=== PATIENT | female | born 1970 | race African-American/Black ===

== ENCOUNTER 2023-12-22 11:39 | Observation (INO) ==
[2023-12-22 12:22] LABS: Hematocrit (blood only) 38.7 % (37.0-47.0); Hemoglobin 12.7 g/dl (12.0-16.0); Mean Corpuscular Hemoglobin 29.1 pg (25.0-34.0); Mean Corpuscular Hgb Conc 32.8 g/dL (32.0-36.0); Mean Corpuscular Volume 88.8 fL (80.0-100.0); Mean Platelet Volume 9.6 fL (9.4-12.4); Platelet Count 309 K/uL (130-400); RDW Coefficient of Variation 14.9 % (11.5-14.5); RDW Standard Deviation 48.9 fL (36.4-46.3); Red Blood Count 4.36 M/uL (4.20-5.40); White Blood Count 5.66 K/ul (4.8-10.8)
[2023-12-22] MEDS: SODIUM CHLORIDE 0.9% 1,000 ML IV ONE (12:22)
--- NOTE | 2023-12-22 12:24 | Emergency Department Note ---
Impression & Plan Somnolence, Stroke-like symptoms, Cocaine abuse ED Provider Note NAME: JASE GARRETT AGE: 53 SEX: F : 1970 ARRIVES VIA: Ambulance INFORMANT: Patient ED PROVIDER(S): Vincent Ibarra MD CHIEF COMPLAINT: Stroke symptoms, referred. PLAN: Disposition: Admit MEDICAL DECISION MAKING: The patient is a 53-year-old woman with a past medical history of cerebrovascular disease/TIA, polysubstance abuse, ERIK, hypertension, neuropathy presents to the emergency department via EMS referred by her PCP after being seen in their office today where is noted that she was altered from her baseline with concern for left-sided weakness in setting of history of TIA. The patient herself reports that she did not realize her left sided weakness though she had reported to her PCP per documentation that she noticed symptoms when she woke up this morning. Per records, the patient has a history of left-sided weakness where she was admitted to [facility] and had stroke evaluation including MRI was negative and was suspected that her symptoms were likely related to vasospasm secondary to cocaine abuse. Patient acknowledges this history but reports she has not used cocaine for at least several days. She denies any other drug ingestions. Has not recent fevers, chills, cough, congestion. On evaluation the patient is mildly somnolent but alert to voice, follows commands. She has no focal extremity weakness she exhibits an intermittent myoclonic jerk. Reflex within normal limits. There is no clonus. EKG without overt acute ischemia. CXR negative for acute cardiopulmonary process per my personal preliminary review/interpretation. WBC, H/H and platelets within normal limits. Chemistry without metabolic acidosis. Electrolytes and FTs unremarkable. High-sensitivity troponin 2.8, within normal limits. Lipase not elevated. TSH is elevated at 25 with free T4 mildly low at 0.50. hCG negative. CT of the head and CT of the head and neck were performed and negative for ICH, ischemia or severe narrowing or occlusion of large vessels. Upon reevaluation the patient continues to have no focal logic deficits though still with mild somnolence though easily awakes to voice. Given she is yet to return to her baseline she does agree with plan for admission for further management. Unclear etiology of the patient's symptoms though polysubstance use is suspected to be contributing either use recently as well as withdrawal such as cocaine washout syndrome. Given history of cerebrovascular disease, TIA or vasospasm as previously suspected also possible but considered to be less likely. Case was discussed with Dr. Cortez, [facility] [place], who will evaluate the patient for admission. Further management per admitting team. Triage Nursing notes reviewed and agree them. Prior/external medical records reviewed Vital Signs: reviewed Differential diagnosis: Infection, dehydration, metabolic abnormality, hypo/hyperglycemia, electrolyte disturbance, anemia, hypoxia, cardiac sources, intracerebral event, toxicologic, neurologic, as well as other pathologies. ER treatment provided: See below. Diagnostics interpreted by me: ECG: Sinus bradycardia, 50 bpm, no ectopy, no overt ST elevation or depression, QTc 428, QRS 88 Cardiac Monitoring: An order for continuous cardiac monitoring was placed and demonstrated sinus bradycardia, 50 bpm, no ectopy. Laboratory studies: See below Imaging studies: See below Consultation(s): Case was discussed with Dr. Cortez, [facility] hospitalist, who will evaluate the patient for admission. HPI: The patient is a 53-year-old woman with a past medical history of cerebrovascular disease/TIA, polysubstance abuse, ERIK, hypertension, neuropathy presents to the emergency department via EMS referred by her PCP after being seen in their office today where is noted that she was altered from her baseline with concern for left-sided weakness in setting of history of TIA. The patient herself reports that she did not realize her left sided weakness though she had reported to her PCP per documentation that she noticed symptoms when she woke up this morning. Per records, the patient has a history of left-sided weakness where she was admitted to [facility] and had stroke evaluation including MRI was negative and was suspected that her symptoms were likely related to vasospasm secondary to cocaine abuse. Patient acknowledges this history but reports she has not used cocaine for at least several days. She denies any other drug ingestions. Has not recent fevers, chills, cough, congestion. ROS: See above HPI for pertinent positives & negatives. A total of 10 systems reviewed and were otherwise negative. VITALS:See Below PHYSICAL EXAMINATION: GENERAL: Mildly somnolent but alert to voice, in no distress HENT: Normocephalic, atraumatic. Oropharynx with dry mucous membranes and otherwise unremarkable. EYES: Normal conjunctiva. Sclera non-icteric. EOMI. No nystamgus. PEARRL. NECK: Supple. No nuchal rigidity. FROM. No JVD. RESPIRATORY: Clear to auscultation. CARDIAC: Bradycardic rate, normal rhythm. Extremities warm and well perfused. Pulses equal. ABDOMEN: Soft, non-distended. No tenderness to palpation. No rebound or guarding. No masses. MUSCULOSKELETAL: Chest examination reveals no tenderness. The back is symmetrical on inspection without obvious abnormality. There is no CVA tenderness to palpation. No joint edema. LOWER EXTREMITIES: Calves are equal size bilaterally and non-tender. No edema. No discoloration. NEURO: No focal sensory or motor deficits noted. Generalized weakness with 4+/5 strength and SILT x 4 extremities. Cerebellar function intact including [id number]. SKIN: No rash or jaundice noted. Vincent Ibarra MD Past Med/Surg History Medical History Cocaine abuse Polysubstance abuse CVA (cerebral vascular accident) Chronic back pain Neuropathy Degenerative disc disease Scoliosis History of kidney stones IBS (irritable bowel syndrome) History of thyroid cancer 2016--sx and radiation Anemia Anxiety Depression Transient ischemic attack (TIA) 2017--no deficits--follows with Dr. Carreon at [place] Sleep apnea cpap Unintentional weight loss Surgical History H/O thyroidectomy History of colonoscopy with polypectomy History of ankle surgery left History of open reduction and internal fixation (ORIF) procedure Boxer's Fracture repair History of carpal tunnel surgery of right wrist x2 History of section x2 History of cholecystectomy History of tooth extraction partial History of placement of ear tubes S/P panniculectomy H/O laparoscopy S/P hysterectomy LYNN BSO H/O hernia repair Status post appendectomy Family History Mother Heart disease Brother Diabetes Heart disease Sister Diabetes Grandmother (Maternal) Breast cancer Grandmother (Paternal) Coronary heart disease Daughter Slow to wake up after anesthesia Father Afib Other Hypertension Social History Smoking Status: Current every day smoker Tobacco Type: Cigarettes Cigarettes Per Day: 5; Second Hand Exposure: Yes (nephew smokes); Do You Dip or Chew Tobacco: No; Hx Alcohol Use: No Hx Substance 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) Preferred Language: Tunisian Communication Ability: Effective Visual Impairment: Limited Hearing Ability: Normal Music Video Director Required: No Beliefs That Will Affect Care: None marital status: Single Current Living Situation: Other 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 How many Children do You have: 2 Feels Safe at Home: Yes Childhood Exposure to Second-Hand Smoke: Yes Diet: regular caffeine: No during the past year weight has: decreased > 10 lbs Dental Care, Regularly: No Physical Activity Frequency: 3-4 Times per Week Seatbelt Use: always Sunscreen Use: No Assistive Devices: CPAP and Glasses Allergies Allergies Allergy/AdvReac Type Severity Reaction Status Date / Time ketorolac [From Toradol] Allergy Severe Anaphylaxis Verified 12/22/23 10:47 morphine Allergy Severe Anaphylaxis Verified 12/22/23 10:47 naproxen Allergy Severe Anaphylaxis Verified 12/22/23 10:47 Penicillins Allergy Severe Anaphylaxis Verified 12/22/23 10:47 tramadol Allergy Severe Anaphylaxis Verified 12/22/23 10:47 Home Meds Home Medications Medication Instructions Recorded Confirmed multivitamin 1 tab PO QAM 08/18/20 12/22/23 buprenorphine 8 mg-naloxone 2 mg 2 film buccal DAILY 12/22/23 12/22/23 sublingual film (Suboxone) Previous Rx's Medication Instructions Recorded Cane #1 ea 06/22/22 naloxone 4 mg/actuation nasal 4 mg intranasal Q2M PRN 02/01/23 spray (Narcan) Respiratory Distress #2 ea albuterol sulfate 90 mcg/actuation 2 puff inhalation Q6H PRN 04/27/23 aerosol inhaler (Ventolin HFA) Shortness Of Breath #8.5 grams atorvastatin 10 mg tablet 10 mg PO DAILY #30 tabs 04/27/23 gabapentin 800 mg tablet 800 mg PO QID #360 tabs 04/27/23 levothyroxine 150 mcg tablet 150 mcg PO QAM #90 tabs 04/27/23 pantoprazole 40 mg tablet,delayed 40 mg PO QAM gerd #90 tabs 04/27/23 release paroxetine HCl 20 mg tablet 20 mg PO QAM #90 tabs 04/27/23 hydrocortisone 2.5 % topical cream 1 applic MD BID hemorrhoids #30 08/15/23 with perineal applicator grams (Anusol-HC) aspirin 81 mg tablet,delayed 81 mg PO QAM #90 tabs 08/31/23 release (Adult Aspirin Regimen) fluticasone furoate 200 1 inh inhalation QAM #180 ea 08/31/23 mcg-vilanterol 25 mcg/dose inhalation powder (Breo Ellipta) sennosides 8.6 mg-docusate sodium 1 - 4 tab-cap (1 - 4 x 8.6-50 mg) 08/31/23 50 mg tablet (Colace 2-In-1) PO DAILY constipation #360 tabs hydrochlorothiazide 25 mg tablet 25 mg PO DAILY #30 tabs 09/05/23 docusate sodium 100 mg capsule See Rx Instructions .Route 09/09/23 .COMPLEX #60 caps tizanidine 4 mg capsule 4 mg PO QID PRN ud #120 caps 11/23/23 Results & Data (ED) Vital Signs Vital Signs - 24 hr 12/22/23 11:58 12/22/23 11:58 12/22/23 11:58 Temperature 37 C Temperature Source Oral Oral Pulse Rate 54 L Pulse Rate from SpO2 Sensor Respiratory Rate 15 Respiratory Effort / Characteristics Non-Labored Spontaneous Respiratory Depth Normal Blood Pressure 126/78 Blood Pressure Mean 94 Blood Pressure Position Lying Pulse Oximetry 99 Oxygen Delivery Method Room Air Room Air Sepsis Recent Fever Within 48 Hours No Sepsis New/Unexplained Change in Mental Status N/A Sepsis Action Taken by Nursing No Action Required 12/22/23 12:02 12/22/23 12:10 12/22/23 12:10 Temperature Temperature Source Pulse Rate 53 L 52 L Pulse Rate from SpO2 Sensor 53 L 52 L Respiratory Rate 12 Respiratory Effort / Characteristics Respiratory Depth Blood Pressure Blood Pressure Mean Blood Pressure Position Pulse Oximetry 97 99 98 Oxygen Delivery Method Room Air Sepsis Recent Fever Within 48 Hours Sepsis New/Unexplained Change in Mental Status Sepsis Action Taken by Nursing 12/22/23 12:20 12/22/23 12:30 12/22/23 12:31 Temperature Temperature Source Pulse Rate 54 L 49 L 53 L Pulse Rate from SpO2 Sensor 57 L 49 L Respiratory Rate 18 11 L Respiratory Effort / Characteristics Respiratory Depth Blood Pressure Blood Pressure Mean Blood Pressure Position Pulse Oximetry 98 98 Oxygen Delivery Method Sepsis Recent Fever Within 48 Hours Sepsis New/Unexplained Change in Mental Status Sepsis Action Taken by Nursing 12/22/23 12:40 12/22/23 12:50 12/22/23 13:00 Temperature Temperature Source Pulse Rate 55 L 57 L 59 L Pulse Rate from SpO2 Sensor 55 L 57 L 59 L Respiratory Rate 20 17 20 Respiratory Effort / Characteristics Respiratory Depth Blood Pressure Blood Pressure Mean Blood Pressure Position Pulse Oximetry 100 100 98 Oxygen Delivery Method Sepsis Recent Fever Within 48 Hours Sepsis New/Unexplained Change in Mental Status Sepsis Action Taken by Nursing 12/22/23 13:10 12/22/23 13:20 12/22/23 13:44 Temperature Temperature Source Pulse Rate 53 L 55 L 48 L Pulse Rate from SpO2 Sensor 53 L 55 L 47 L Respiratory Rate 14 Respiratory Effort / Characteristics Respiratory Depth Blood Pressure Blood Pressure Mean Blood Pressure Position Pulse Oximetry 99 98 98 Oxygen Delivery Method Sepsis Recent Fever Within 48 Hours Sepsis New/Unexplained Change in Mental Status Sepsis Action Taken by Nursing 12/22/23 13:50 12/22/23 14:00 12/22/23 14:10 Temperature Temperature Source Pulse Rate 49 L 48 L 48 L Pulse Rate from SpO2 Sensor 49 L 48 L 48 L Respiratory Rate 12 12 18 Respiratory Effort / Characteristics Respiratory Depth Blood Pressure Blood Pressure Mean Blood Pressure Position Pulse Oximetry 98 98 98 Oxygen Delivery Method Sepsis Recent Fever Within 48 Hours Sepsis New/Unexplained Change in Mental Status Sepsis Action Taken by Nursing 12/22/23 14:20 12/22/23 14:30 12/22/23 14:40 Temperature Temperature Source Pulse Rate 49 L 47 L 48 L Pulse Rate from SpO2 Sensor 48 L 48 L 48 L Respiratory Rate 15 18 Respiratory Effort / Characteristics Respiratory Depth Blood Pressure Blood Pressure Mean Blood Pressure Position Pulse Oximetry 98 99 98 Oxygen Delivery Method Sepsis Recent Fever Within 48 Hours Sepsis New/Unexplained Change in Mental Status Sepsis Action Taken by Nursing 12/22/23 14:50 12/22/23 15:00 12/22/23 15:10 Temperature Temperature Source Pulse Rate 48 L 48 L 49 L Pulse Rate from SpO2 Sensor 48 L 48 L 49 L Respiratory Rate 12 12 Respiratory Effort / Characteristics Respiratory Depth Blood Pressure Blood Pressure Mean Blood Pressure Position Pulse Oximetry 98 100 99 Oxygen Delivery Method Sepsis Recent Fever Within 48 Hours Sepsis New/Unexplained Change in Mental Status Sepsis Action Taken by Nursing 12/22/23 15:30 12/22/23 15:40 12/22/23 16:38 Temperature Temperature Source Pulse Rate 47 L 52 L 55 L Pulse Rate from SpO2 Sensor 47 L 52 L Respiratory Rate 16 Respiratory Effort / Characteristics Respiratory Depth Blood Pressure Blood Pressure Mean Blood Pressure Position Pulse Oximetry 100 99 Oxygen Delivery Method Sepsis Recent Fever Within 48 Hours Sepsis New/Unexplained Change in Mental Status Sepsis Action Taken by Nursing Laboratory Data Attestation: I reviewed the patient's lab results. 12/22/23 11:55 12/22/23 11:55 Lab Results 12/22/23 12/22/23 12/22/23 Range/Units 11:55 12:17 12:20 WBC 5.66 (4.8-10.8) K/ul RBC 4.36 (4.20-5.40) M/uL Hgb 12.7 (12.0-16.0) g/dl Hct 38.7 (37.0-47.0) % MCV 88.8 (80.0-100.0) fL MCH 29.1 (25.0-34.0) pg MCHC 32.8 (32.0-36.0) g/dL RDW Std Deviation 48.9 H (36.4-46.3) fL RDW Coeff of Reilly 14.9 H (11.5-14.5) % Plt Count 309 (130-400) K/uL MPV 9.6 (9.4-12.4) fL Immature Gran % (Auto) 0.2 % Neut % (Auto) 41.4 % Lymph % (Auto) 50.9 % [place] % (Auto) 4.9 % Eos % (Auto) 1.2 % Baso % (Auto) 1.4 % Neut # (Auto) 2.34 (1.40-6.50) K/uL Lymph # (Auto) 2.88 (1.20-3.40) K/uL [place] # (Auto) 0.28 (0.11-0.59) K/uL Eos # (Auto) 0.07 (0.00-0.50) K/uL Baso # (Auto) 0.08 (0.00-0.20) K/uL Immature Gran # (Auto) 0.01 (0.01-0.20) K/uL PT 11.4 (9.0-12.0) Seconds INR 1.0 (0.9-1.1) Sodium 137 (136-145) mmol/L Potassium 3.7 (3.5-5.1) mmol/L Chloride 105 (98-107) mmol/L Carbon Dioxide 27 (21-32) mmol/L Anion Gap 5 (3-11) BUN 14 (6-23) mg/dl Creatinine 1.16 (0.6-1.2) mg/dl Est Cr Clr Drug Dosing 53.7 ml/min Est GFR ( Amer) 63.1 ml/min Est GFR (Non-Af Amer) 54.5 ml/min BUN/Creatinine Ratio 12.1 (10-20) Glucose 108 H (70-99(Fasting)) mg/dl POC Glucose 95 (70-99) mg/dl Calcium 8.4 L (8.6-10.3) mg/dl Phosphorus 3.9 (2.5-4.9) mg/dl Magnesium 2.0 (1.7-2.4) mg/dl Total Bilirubin 0.4 (0.2-1.0) mg/dl AST 18 (13-39) U/L ALT 11 (7-52) U/L Alkaline Phosphatase 67 (34-104) U/L Troponin I High Sens 2.8 (0-14) pg/ml Total Protein 6.9 (6.0-8.3) gm/dl Albumin 4.2 (3.4-5.0) gm/dl Globulin 2.7 (2.5-4.0) gm/dl Albumin/Globulin Ratio 1.6 (0.9-2) Lipase 44 (11-82) U/L TSH 25.199 H (0.300-4.500) uIu/ml Free T4 0.50 L (0.61-1.60) ng/dl HCG, Qual Negative (Negative) Urine Color Urine Appearance (Clear) Urine pH (4.5-7.5) Ur Specific [place] (1.000-1.030) Urine Protein (Negative) Urine Glucose (UA) (Negative) Urine Ketones (Negative) Urine Blood (Negative) Urine Nitrite (Negative) Urine Bilirubin (Negative) Urine Urobilinogen (Negative) Ur Leukocyte Esterase (Negative) Urine Opiates Screen (Neg) Ur Methadone, Qual (Neg) Urine Barbiturates (Neg) Ur Phencyclidine (PCP) (Neg) U Amphetamin/Meth Scrn (Neg) MDMA (Ecstasy) Screen (Neg) U Benzodiazepines Scrn (Neg) Ur Cocaine Metabolite (Neg) U Marijuana (THC) Screen (Neg) Ethyl Alcohol mg/dL < 10.0 (<10.0) mg/dl 12/22/23 Range/Units 15:25 WBC (4.8-10.8) K/ul RBC (4.20-5.40) M/uL Hgb (12.0-16.0) g/dl Hct (37.0-47.0) % MCV (80.0-100.0) fL MCH (25.0-34.0) pg MCHC (32.0-36.0) g/dL RDW Std Deviation (36.4-46.3) fL RDW Coeff of Reilly (11.5-14.5) % Plt Count (130-400) K/uL MPV (9.4-12.4) fL Immature Gran % (Auto) % Neut % (Auto) % Lymph % (Auto) % [place] % (Auto) % Eos % (Auto) % Baso % (Auto) % Neut # (Auto) (1.40-6.50) K/uL Lymph # (Auto) (1.20-3.40) K/uL [place] # (Auto) (0.11-0.59) K/uL Eos # (Auto) (0.00-0.50) K/uL Baso # (Auto) (0.00-0.20) K/uL Immature Gran # (Auto) (0.01-0.20) K/uL PT (9.0-12.0) Seconds INR (0.9-1.1) Sodium (136-145) mmol/L Potassium (3.5-5.1) mmol/L Chloride (98-107) mmol/L Carbon Dioxide (21-32) mmol/L Anion Gap (3-11) BUN (6-23) mg/dl Creatinine (0.6-1.2) mg/dl Est Cr Clr Drug Dosing ml/min Est GFR ( Amer) ml/min Est GFR (Non-Af Amer) ml/min BUN/Creatinine Ratio (10-20) Glucose (70-99(Fasting)) mg/dl POC Glucose (70-99) mg/dl Calcium (8.6-10.3) mg/dl Phosphorus (2.5-4.9) mg/dl Magnesium (1.7-2.4) mg/dl Total Bilirubin (0.2-1.0) mg/dl AST (13-39) U/L ALT (7-52) U/L Alkaline Phosphatase (34-104) U/L Troponin I High Sens (0-14) pg/ml Total Protein (6.0-8.3) gm/dl Albumin (3.4-5.0) gm/dl Globulin (2.5-4.0) gm/dl Albumin/Globulin Ratio (0.9-2) Lipase (11-82) U/L TSH (0.300-4.500) uIu/ml Free T4 (0.61-1.60) ng/dl HCG, Qual (Negative) Urine Color Yellow Urine Appearance Clear (Clear) Urine pH 6.0 (4.5-7.5) Ur Specific [place] 1.029 (1.000-1.030) Urine Protein Negative (Negative) Urine Glucose (UA) Negative (Negative) Urine Ketones Negative (Negative) Urine Blood Negative (Negative) Urine Nitrite Negative (Negative) Urine Bilirubin Negative (Negative) Urine Urobilinogen Negative (Negative) Ur Leukocyte Esterase Negative (Negative) Urine Opiates Screen Neg (Neg) Ur Methadone, Qual Neg (Neg) Urine Barbiturates Neg (Neg) Ur Phencyclidine (PCP) Neg (Neg) U Amphetamin/Meth Scrn Neg (Neg) MDMA (Ecstasy) Screen Neg (Neg) U Benzodiazepines Scrn Neg (Neg) Ur Cocaine Metabolite Pos H (Neg) U Marijuana (THC) Screen Neg (Neg) Ethyl Alcohol mg/dL (<10.0) mg/dl Administered Medications Discontinued Medications Sodium Chloride (Nss) 1,000 mls @ 999 mls/hr IV .Q1H1M ONE Stop: 12/22/23 13:02 Last Infusion: 12/22/23 13:24 Dose: Infused Documented By: Admin: 12/22/23 12:22 Dose: 999 mls/hr Documented By: AGUSTÍN Ioversol (Optiray 350 500ml) 113 ml IV ONCE ONE Stop: 12/22/23 13:41 Last Admin: 12/22/23 13:41 Dose: 113 ml Documented By: ISABELA Imaging Data Radiologist's Impression: Chest X-Ray 12/22/23 12:01 SINGLE VIEW CHEST CLINICAL HISTORY: Strokelike symptoms. FINDINGS: 2 AP, portable, upright chest radiographs are obtained. No prior studies are available for comparison at the time of dictation. Partially degraded The cardiomediastinal silhouette is unremarkable. There is mild elevation of the right hemidiaphragm with right basilar atelectasis. The lungs and pleural spaces are otherwise clear. No pneumothorax is seen. The bony thorax is grossly intact. IMPRESSION: No active disease in the chest. ACT 112: Negative or not required by law. Electronically signed by: Nick Caceres M.D. 12/22/2023 12:[address] 12/22/23 12:[address] OF THE BRAIN; CT ANGIOGRAM OF THE BRAIN; CT ANGIOGRAM OF THE NECK CLINICAL HISTORY: Difficulty walking. Strokelike symptoms. COMPARISON STUDY: No priors. TECHNIQUE: Unenhanced axial CT scan of the brain is performed. Subsequently, following the IV administration of 113 of Optiray 320, CT angiogram of the head and neck was performed from the aortic arch to the vertex. Images are reviewed in the axial, sagittal, and coronal planes. 3-D MIPS images are created and assessed. IV contrast was administered without complication. All measurements were calculated based on NASCET criteria. A dose lowering technique was utilized adhering to the principles of ALARA. CT DOSE: 1013.98 mGy.cm FINDINGS: Brain parenchyma: The brain parenchyma is normal in appearance. There is no hemorrhage, mass effect, or evidence of acute territorial ischemia by CT criteria. There is no evidence of enhancing mass lesion on the angiogram phase images. The ventricles, sulci, and cisterns are normal in configuration. Hewitt- white matter differentiation is preserved. No extra-axial fluid collection is seen. Thoracic aorta: There is moderate atherosclerotic calcification of the thoracic aorta. Visualized portions of the thoracic aorta are normal in caliber. The aortic arch demonstrates standard 3-vessel anatomy. Right carotid arterial system: The right common carotid artery is widely patent, as on the right internal and external carotid arteries. Left carotid arterial system: The left common carotid artery is widely patent, as are the left internal and external carotid arteries. Vertebral arteries: The vertebral arteries are widely patent bilaterally noting right-sided dominance. Subclavian arteries: Widely patent bilaterally. Intracranial vasculature: The internal carotid arteries are patent at the skull base, as are the anterior and middle cerebral arteries bilaterally. The vertebrobasilar system and posterior cerebral arteries are widely patent. The right vertebral artery is dominant. There is no aneurysm, high-grade stenosis, or focal vessel cut off seen throughout the intracranial circulation. Jugular veins: Patent bilaterally. Dural sinuses: Patent. Lung apices: Partially visualized upper lobe lung parenchyma appears clear. Soft tissues: The visualized pharyngeal soft tissues are normal in appearance noting angiographic phase technique. The oropharyngeal airway appears widely patent. The salivary and thyroid glands are normal in appearance. No cervical lymphadenopathy is seen. Skeletal structures: The skeletal structures are osteopenic. The calvarium appears intact. The cervical spine is within normal limits. There are minimal infiltrates. The compression injuries of T2 and T3. Orbits: The bony orbits are intact. Orbital contents are normal as visualized. Sinuses and mastoids: There is trace mucosal thickening right maxillary antrum. The remaining paranasal sinuses are clear. The mastoid air cells are well pneumatized. IMPRESSION: 1. There is no hemorrhage, mass effect, or evidence of acute territorial ischemia by CT criteria. 2. Unremarkable CT angiogram of the brain. 3. Unremarkable CT angiogram of the neck. ACT 112: Negative or not required by law. Electronically signed by: Nick Caceres M.D. 12/22/2023 1:58 PM Head CTA 12/22/23 12:[address] OF THE BRAIN; CT ANGIOGRAM OF THE BRAIN; CT ANGIOGRAM OF THE NECK CLINICAL HISTORY: Difficulty walking. Strokelike symptoms. COMPARISON STUDY: No priors. TECHNIQUE: Unenhanced axial CT scan of the brain is performed. Subsequently, following the IV administration of 113 of Optiray 320, CT angiogram of the head and neck was performed from the aortic arch to the vertex. Images are reviewed in the axial, sagittal, and coronal planes. 3-D MIPS images are created and assessed. IV contrast was administered without complication. All measurements were calculated based on NASCET criteria. A dose lowering technique was utilized adhering to the principles of ALARA. CT DOSE: 1013.98 mGy.cm FINDINGS: Brain parenchyma: The brain parenchyma is normal in appearance. There is no hemorrhage, mass effect, or evidence of acute territorial ischemia by CT criteria. There is no evidence of enhancing mass lesion on the angiogram phase images. The ventricles, sulci, and cisterns are normal in configuration. Hewitt- white matter differentiation is preserved. No extra-axial fluid collection is seen. Thoracic aorta: There is moderate atherosclerotic calcification of the thoracic aorta. Visualized portions of the thoracic aorta are normal in caliber. The aortic arch demonstrates standard 3-vessel anatomy. Right carotid arterial system: The right common carotid artery is widely patent, as on the right internal and external carotid arteries. Left carotid arterial system: The left common carotid artery is widely patent, as are the left internal and external carotid arteries. Vertebral arteries: The vertebral arteries are widely patent bilaterally noting right-sided dominance. Subclavian arteries: Widely patent bilaterally. Intracranial vasculature: The internal carotid arteries are patent at the skull base, as are the anterior and middle cerebral arteries bilaterally. The vertebrobasilar system and posterior cerebral arteries are widely patent. The right vertebral artery is dominant. There is no aneurysm, high-grade stenosis, or focal vessel cut off seen throughout the intracranial circulation. Jugular veins: Patent bilaterally. Dural sinuses: Patent. Lung apices: Partially visualized upper lobe lung parenchyma appears clear. Soft tissues: The visualized pharyngeal soft tissues are normal in appearance noting angiographic phase technique. The oropharyngeal airway appears widely patent. The salivary and thyroid glands are normal in appearance. No cervical lymphadenopathy is seen. Skeletal structures: The skeletal structures are osteopenic. The calvarium appears intact. The cervical spine is within normal limits. There are minimal infiltrates. The compression injuries of T2 and T3. Orbits: The bony orbits are intact. Orbital contents are normal as visualized. Sinuses and mastoids: There is trace mucosal thickening right maxillary antrum. The remaining paranasal sinuses are clear. The mastoid air cells are well pneumatized. IMPRESSION: 1. There is no hemorrhage, mass effect, or evidence of acute territorial ischemia by CT criteria. 2. Unremarkable CT angiogram of the brain. 3. Unremarkable CT angiogram of the neck. ACT 112: Negative or not required by law. Electronically signed by: Nick Caceres M.D. 12/22/2023 1:58 PM Neck CTA 12/22/23 12:[address] OF THE BRAIN; CT ANGIOGRAM OF THE BRAIN; CT ANGIOGRAM OF THE NECK CLINICAL HISTORY: Difficulty walking. Strokelike symptoms. COMPARISON STUDY: No priors. TECHNIQUE: Unenhanced axial CT scan of the brain is performed. Subsequently, following the IV administration of 113 of Optiray 320, CT angiogram of the head and neck was performed from the aortic arch to the vertex. Images are reviewed in the axial, sagittal, and coronal planes. 3-D MIPS images are created and assessed. IV contrast was administered without complication. All measurements were calculated based on NASCET criteria. A dose lowering technique was utilized adhering to the principles of ALARA. CT DOSE: 1013.98 mGy.cm FINDINGS: Brain parenchyma: The brain parenchyma is normal in appearance. There is no hemorrhage, mass effect, or evidence of acute territorial ischemia by CT criteria. There is no evidence of enhancing mass lesion on the angiogram phase images. The ventricles, sulci, and cisterns are normal in configuration. Hewitt- white matter differentiation is preserved. No extra-axial fluid collection is seen. Thoracic aorta: There is moderate atherosclerotic calcification of the thoracic aorta. Visualized portions of the thoracic aorta are normal in caliber. The aortic arch demonstrates standard 3-vessel anatomy. Right carotid arterial system: The right common carotid artery is widely patent, as on the right internal and external carotid arteries. Left carotid arterial system: The left common carotid artery is widely patent, as are the left internal and external carotid arteries. Vertebral arteries: The vertebral arteries are widely patent bilaterally noting right-sided dominance. Subclavian arteries: Widely patent bilaterally. Intracranial vasculature: The internal carotid arteries are patent at the skull base, as are the anterior and middle cerebral arteries bilaterally. The vertebrobasilar system and posterior cerebral arteries are widely patent. The right vertebral artery is dominant. There is no aneurysm, high-grade stenosis, or focal vessel cut off seen throughout the intracranial circulation. Jugular veins: Patent bilaterally. Dural sinuses: Patent. Lung apices: Partially visualized upper lobe lung parenchyma appears clear. Soft tissues: The visualized pharyngeal soft tissues are normal in appearance noting angiographic phase technique. The oropharyngeal airway appears widely patent. The salivary and thyroid glands are normal in appearance. No cervical lymphadenopathy is seen. Skeletal structures: The skeletal structures are osteopenic. The calvarium appears intact. The cervical spine is within normal limits. There are minimal infiltrates. The compression injuries of T2 and T3. Orbits: The bony orbits are intact. Orbital contents are normal as visualized. Sinuses and mastoids: There is trace mucosal thickening right maxillary antrum. The remaining paranasal sinuses are clear. The mastoid air cells are well pneumatized. IMPRESSION: 1. There is no hemorrhage, mass effect, or evidence of acute territorial ischemia by CT criteria. 2. Unremarkable CT angiogram of the brain. 3. Unremarkable CT angiogram of the neck. ACT 112: Negative or not required by law. Electronically signed by: Nick Caceres M.D. 12/22/2023 1:58 PM Discharge Plan Visit Data Chief Complaint: Stroke/CVA Symptoms ED Provider: Vincent Ibarra Discharge Problem: Somnolence, Stroke-like symptoms, Cocaine abuse Forms Stand Alone Forms: [facility] Candid io Prescriptions Prescriptions: No Action Narcan 4 mg/actuation spray,non-aerosol 4 mg intranasal Q2M PRN (Reason: Respiratory Distress) Qty: 2 1RF Rx Instructions: spray 1 dose into ONE nostril; alternate nostrils w each dose until help arrives hydrocortisone [Anusol-HC] 2.5 % cream with perineal applicator 1 applic MD BID Qty: 30 1RF sennosides-docusate sodium [Colace 2-In-1] 8.6-50 mg tablet 1 - 4 tab-cap PO DAILY Qty: 360 1RF Breo Ellipta 200-25 mcg/dose blister with device 1 inh inhalation QAM Qty: 180 1RF aspirin [Adult Aspirin Regimen] 81 mg tablet,delayed release (DR/EC) 81 mg PO QAM Qty: 90 1RF docusate sodium 100 mg capsule See Rx Instructions .ROUTE .COMPLEX Qty: 60 2RF Dose Instruction: take 1 capsule twice daily Rx Instructions: take 1 capsule twice daily tizanidine 4 mg capsule 4 mg PO QID PRN (Reason: ud) Qty: 120 0RF hydrochlorothiazide 25 mg tablet 25 mg PO DAILY Qty: 30 11RF multivitamin Tablet 1 tab PO QAM albuterol sulfate [Ventolin HFA] 90 mcg/actuation HFA aerosol inhaler 2 puff inhalation Q6H PRN (Reason: Shortness Of Breath) Qty: 8.5 11RF atorvastatin 10 mg tablet 10 mg PO DAILY Qty: 30 11RF gabapentin 800 mg tablet 800 mg PO QID Qty: 360 1RF levothyroxine 150 mcg tablet 150 mcg PO QAM Qty: 90 2RF pantoprazole 40 mg tablet,delayed release (DR/EC) 40 mg PO QAM Qty: 90 3RF paroxetine HCl 20 mg tablet 20 mg PO QAM Qty: 90 3RF (DME) Cane See Rx Instructions .Route .MEDSUPPLY Qty: 1 0RF Rx Instructions: As directed buprenorphine-naloxone [Suboxone] 8-2 mg film 2 film buccal DAILY Rx Instructions: original directions: 1 film daily Referrals Referrals: Guy Mayfield, [Primary Care Provider] -
[2023-12-22 12:35] LABS: Prothrombin Time 11.4 Seconds (9.0-12.0)
[2023-12-22 12:37] LABS: Basophils # (auto) 0.08 K/uL (0.00-0.20); Basophils % (auto) 1.4 %; Eosinophils # (auto) 0.07 K/uL (0.00-0.50); Eosinophils % (auto) 1.2 %; Immature Granulocytes # (auto) 0.01 K/uL (0.01-0.20); Immature Granulocytes % (auto) 0.2 %; Lymphocytes # (auto) 2.88 K/uL (1.20-3.40); Lymphocytes % (auto) 50.9 %; Monocytes # (auto) 0.28 K/uL (0.11-0.59); Monocytes % (auto) 4.9 %; Neutrophils # (auto) 2.34 K/uL (1.40-6.50); Neutrophils % (auto) 41.4 %
[2023-12-22 12:40] LABS: Pregnancy Test, Serum Negative (Negative)
[2023-12-22 12:52] LABS: Albumin Level 4.2 gm/dl (3.4-5.0); Bilirubin,Total 0.4 mg/dl (0.2-1.0); Calcium 8.4 mg/dl (8.6-10.3); Potassium 3.7 mmol/L (3.5-5.1)
[2023-12-22 12:57] LABS: Troponin I High Sensitivity 2.8 pg/ml (0-14)
[2023-12-22 12:58] LABS: Albumin Globulin Ratio 1.6 (0.9-2); BUN Creatinine Ratio 12.1 (10-20); Creatinine Clr Calc Pharmacy 53.7 ml/min; Est GFR (African American) 63.1 ml/min; Est GFR (Non-African American) 54.5 ml/min; Globulin 2.7 gm/dl (2.5-4.0); Phosphorus 3.9 mg/dl (2.5-4.9); Total Protein 6.9 gm/dl (6.0-8.3)
[2023-12-22 13:06] LABS: Thyroid Stimulating Hormone 25.199 uIu/ml (0.300-4.500)
[2023-12-22] MEDS: OPTIRAY 350 500ml IV ONE (13:41)
[2023-12-22 13:45] LABS: T4 Free Thyroxine 0.5 ng/dl (0.61-1.60)
--- NOTE | 2023-12-22 13:59 | CT Scan Report ---
UNENHANCED CT OF THE BRAIN; CT ANGIOGRAM OF THE BRAIN; CT ANGIOGRAM OF THE NECK CLINICAL HISTORY: Difficulty walking. Strokelike symptoms. COMPARISON STUDY: No priors. TECHNIQUE: Unenhanced axial CT scan of the brain is performed. Subsequently, following the IV adminis tration of 113 of Optiray 320, CT angiogram of the head and neck was performed from the aortic arch t o the vertex. Images are reviewed in the axial, sagittal, and coronal planes. 3-D MIPS images are cre ated and assessed. IV contrast was administered without complication. All measurements were calculate d based on NASCET criteria. A dose lowering technique was utilized adhering to the principles of ALA RA. CT DOSE: 1013.98 mGy.cm FINDINGS: Brain parenchyma: The brain parenchyma is normal in appearance. There is no hemorrhage, mass effect, or evidence of acute territorial ischemia by CT criteria. There is no evidence of enhancing mass lesi on on the angiogram phase images. The ventricles, sulci, and cisterns are normal in configuration. Gr ay-white matter differentiation is preserved. No extra-axial fluid collection is seen. Thoracic aorta: There is moderate atherosclerotic calcification of the thoracic aorta. Visualized por tions of the thoracic aorta are normal in caliber. The aortic arch demonstrates standard 3-vessel arleen kristi. Right carotid arterial system: The right common carotid artery is widely patent, as on the right inte rnal and external carotid arteries. Left carotid arterial system: The left common carotid artery is widely patent, as are the left international account manager al and external carotid arteries. Vertebral arteries: The vertebral arteries are widely patent bilaterally noting right-sided dominance . Subclavian arteries: Widely patent bilaterally. Intracranial vasculature: The internal carotid arteries are patent at the skull base, as are the ante rior and middle cerebral arteries bilaterally. The vertebrobasilar system and posterior cerebral areli cabrera are widely patent. The right vertebral artery is dominant. There is no aneurysm, high-grade sten osis, or focal vessel cut off seen throughout the intracranial circulation. Jugular veins: Patent bilaterally. Dural sinuses: Patent. Lung apices: Partially visualized upper lobe lung parenchyma appears clear. Soft tissues: The visualized pharyngeal soft tissues are normal in appearance noting angiographic pha se technique. The oropharyngeal airway appears widely patent. The salivary and thyroid glands are nor mal in appearance. No cervical lymphadenopathy is seen. Skeletal structures: The skeletal structures are osteopenic. The calvarium appears intact. The cervic al spine is within normal limits. There are minimal infiltrates. The compression injuries of T2 and T 3. Orbits: The bony orbits are intact. Orbital contents are normal as visualized. Sinuses and mastoids: There is trace mucosal thickening right maxillary antrum. The remaining paranas al sinuses are clear. The mastoid air cells are well pneumatized. IMPRESSION: 1. There is no hemorrhage, mass effect, or evidence of acute territorial ischemia by CT criteria. 2. Unremarkable CT angiogram of the brain. 3. Unremarkable CT angiogram of the neck. ACT 112: Negative or not required by law. Electronically signed by: Nick Caceres M.D. 12/22/2023 1:58 PM
--- NOTE | 2023-12-22 14:02 | Electrocardiogram Report ---
Test Reason : Blood Pressure : / mmHG Vent. Rate : 050 BPM Atrial Rate : 050 BPM P-R Int : 160 ms QRS Dur : 088 ms QT Int : 470 ms P-R-T Axes : 072 076 -14 degrees QTc Int : 428 ms Sinus bradycardia T wave abnormality, consider anterolateral ischemia Abnormal ECG No previous ECGs available Confirmed by Mikey Fontenot ([id number]) on 12/22/2023 2:02:13 PM Referred By: REFERRED SELF Confirmed By:Mikey Fontenot
[2023-12-22 15:41] LABS: Appearance Urine Clear (Clear); Bilirubin Urine Negative (Negative); Blood Urine Negative (Negative); Color Urine Yellow; Glucose Urine UA Negative (Negative); Ketones Urine Negative (Negative); Leukocyte Esterase Urine Negative (Negative); Nitrite Urine Negative (Negative); Protein Urine Negative (Negative); Specific Gravity Urine 1.029 (1.000-1.030); Urobilinogen Urine Negative (Negative)
--- NOTE | 2023-12-22 16:33 | History & Physical Report ---
Date of Service December 22, 2023 Assessment & Plan (1) Stroke-like symptoms: Plan: LUE Weakness, dysarthria, somnolence Patient with reported dysarthria, and focal left upper extremity deficits as outpatient the seem nearly resolved at time of inpatient assessment although somewhat limited by engagement and somnolence CT/CT angio of the head and neck without acute findings MRI pending No dysarthria on admission DDx includes substance-induced encephalopathy/sedation, possible extra doses of Suboxone versus gabapentin versus cocaine withdrawal following cocaine use 3 days ago (2) Somnolence: (3) Polysubstance abuse: Plan: History of polysubstance abuse Endorses cocaine use 3 days ago urine tox is consistent/positive for this. ?Withdrawal She does take buprenorphine and opiates screen is negative, does not think she took any additional doses of your buprenorphine yesterday but is not sure what day it is and requires frequent reorientation. She does not have respiratory compromise at time of assessment is slightly bradycardic with appropriate chronotropic response. Narcan is on-call for severe narcosis, will continue to monitor at this time. She does not have metabolic acidosis on admission Alcohol is negative Anion gap is normal (4) Hypothyroidism (acquired): Plan: Hypothyroidism TSH is elevated with low free T4, Synthroid adjusted from 150 mcg to 175 mcg. Recheck TSH in 6 weeks as outpatient. (5) GERD without esophagitis: Plan: GERD Continue Protonix Plan Chronic stable issues Hypertension: Normotensive on admission. Dyazide temporarily held pending stroke evaluation for permissive hypertension; if normal can continue Anxiety: Paroxetine continued History of neuropathy, denies numbness/tingling on admission. Tizanidine held. Gabapentin level pending, hold if elevated patient denies extra doses of this DVT prophylaxis: Lovenox Disposition: PCU CODE STATUS: Full code History of Present Illness Primary Care Provider: Guy Mayfield DO Patient follows with Dr. Mayfield as outpatient and is well-known to that office. When seen today patient was reportedly normal the previous night but on PCP evaluation had diminished strength and fine motor activity of the left upper extremity with new balance deficits with slurred speech and left pronator drift suspicious for acute stroke pathology. She was referred to the ER for stroke evaluation. 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 CT of the head and CT angios were normal. History of similar symptoms with suspected vasospasm mediated etiology from cocaine use, patient denies any cocaine use in the preceding 72 hours. Troponin is normal. Patient seen at the bedside. Somnolent and falls asleep easily. History is somewhat limited by somnolence. She reorients easily but frequently falls asleep and needs reorientation and is unclear what day it is. She is oriented to month and year, but does repeatedly ask where she is and what it is. Laurel is seen in the ER. Extremely somnolent. No chest pain or chest pressure. No dyspnea. +dry nonproductive cough for a few days. Denies fever, chills, sweats but has been cold lately. Denies diarrhrea/constipation Takes suboxone 2x 8mg total daily split as morning and night.Takes suboxone for pain. Denies narcotic use in the last 7 years. Denies any other coingestions other than cocaine use 3 days ago Reports that she did not take her Suboxone today last took this last night, and denies taking any extra doses. Urine tox is negative for opiates, positive for cocaine Denies headache, photosensitivity, photosensitivity At time bedside assessment she denies weakness. Denies paresthesias at the bedside Medical History: Reviewed Medications: Reviewed Surgical History: Reviewed Family history: Reviewed Allergies: Reviewed Social History: Cigarettes 0.5ppd, >10years. Endorses coaine use 3 days ago. Uses cocaine less than monthly. Code Status: Full code Allergies Allergy/AdvReac Type Severity Reaction Status Date / Time ketorolac [From Toradol] Allergy Severe Anaphylaxis Verified 12/22/23 10:47 morphine Allergy Severe Anaphylaxis Verified 12/22/23 10:47 naproxen Allergy Severe Anaphylaxis Verified 12/22/23 10:47 Penicillins Allergy Severe Anaphylaxis Verified 12/22/23 10:47 tramadol Allergy Severe Anaphylaxis Verified 12/22/23 10:47 Home Medications Medication Instructions Recorded Confirmed Type multivitamin 1 tab PO QAM 08/18/20 12/22/23 History Cane #1 ea 06/22/22 12/22/23 Rx naloxone 4 mg/actuation nasal 4 mg intranasal Q2M PRN 02/01/23 12/22/23 Rx spray (Narcan) Respiratory Distress #2 ea albuterol sulfate 90 mcg/actuation 2 puff inhalation Q6H PRN 04/27/23 12/22/23 Rx aerosol inhaler (Ventolin HFA) Shortness Of Breath #8.5 grams atorvastatin 10 mg tablet 10 mg PO DAILY #30 tabs 04/27/23 12/22/23 Rx gabapentin 800 mg tablet 800 mg PO QID #360 tabs 04/27/23 12/22/23 Rx levothyroxine 150 mcg tablet 150 mcg PO QAM #90 tabs 04/27/23 12/22/23 Rx pantoprazole 40 mg tablet,delayed 40 mg PO QAM gerd #90 tabs 04/27/23 12/22/23 Rx release paroxetine HCl 20 mg tablet 20 mg PO QAM #90 tabs 04/27/23 12/22/23 Rx hydrocortisone 2.5 % topical cream 1 applic MI BID hemorrhoids #30 08/15/23 12/22/23 Rx with perineal applicator grams (Anusol-HC) aspirin 81 mg tablet,delayed 81 mg PO QAM #90 tabs 08/31/23 12/22/23 Rx release (Adult Aspirin Regimen) fluticasone furoate 200 1 inh inhalation QAM #180 ea 08/31/23 12/22/23 Rx mcg-vilanterol 25 mcg/dose inhalation powder (Breo Ellipta) sennosides 8.6 mg-docusate sodium 1 - 4 tab-cap (1 - 4 x 8.6-50 mg) 08/31/23 12/22/23 Rx 50 mg tablet (Colace 2-In-1) PO DAILY constipation #360 tabs hydrochlorothiazide 25 mg tablet 25 mg PO DAILY #30 tabs 09/05/23 12/22/23 Rx docusate sodium 100 mg capsule See Rx Instructions .Route 09/09/23 12/22/23 Rx .COMPLEX #60 caps tizanidine 4 mg capsule 4 mg PO QID PRN ud #120 caps 11/23/23 12/22/23 Rx buprenorphine 8 mg-naloxone 2 mg 2 film buccal DAILY 12/22/23 12/22/23 History sublingual film (Suboxone) Past Med/Surg History Medical History (Updated 12/22/23 @ 16:35 by Vincent Ibarra MD) Cocaine abuse Polysubstance abuse CVA (cerebral vascular accident) Chronic back pain Neuropathy Degenerative disc disease Scoliosis History of kidney stones IBS (irritable bowel syndrome) History of thyroid cancer 2017--sx and radiation Anemia Anxiety Depression Transient ischemic attack (TIA) 2017--no deficits--follows with Dr. Carreon at [facility] Sleep apnea cpap Unintentional weight loss Surgical History H/O thyroidectomy History of colonoscopy with polypectomy History of ankle surgery left History of open reduction and internal fixation (ORIF) procedure Boxer's Fracture repair History of carpal tunnel surgery of right wrist x2 History of section x2 History of cholecystectomy History of tooth extraction partial History of placement of ear tubes S/P panniculectomy H/O laparoscopy S/P hysterectomy LYNN BSO H/O hernia repair Status post appendectomy Family History Mother Heart disease Brother Diabetes Heart disease Sister Diabetes Grandmother (Maternal) Breast cancer Grandmother (Paternal) Coronary heart disease Daughter Slow to wake up after anesthesia Father Afib Other Hypertension Social History Smoking Status: Current every day smoker Tobacco Type: Cigarettes Cigarettes Per Day: 5; Second Hand Exposure: Yes (nephew smokes); Do You Dip or Chew Tobacco: No; Hx Alcohol Use: No Hx Substance 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) Preferred Language: Georgian Communication Ability: Effective Visual Impairment: Limited Hearing Ability: Normal Apprenticeship Training Representative Required: No Beliefs That Will Affect Care: None marital status: Single Current Living Situation: Other 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 Falls back asleep easily HEENT: Atraumatic, normocephalic. Pupils equal and reactive to light. Vision and hearing grossly intact Pulm: CTAB A&P. -wheezes, -rales, -rhonchi. Symmetrical chest rise. No increased work of breathing. No respiratory distress. Cardiac: bardycardic, regular, -mrg. Radial pulses intact and symmetrical. Abdominal: Nontender, nondistended, soft. BS present. Extremities: 5/5 call center dispatcher strength, elbow flexion, hip flexion, ankle dorsiflexion/plantarflexion grossly at the bedside although limited effort due to somnolence and engagement. Endorses intact sensation in hands and feet bilaterally. No obvious dysmetria. Results & Data Results & Data Vital Signs (Past 12 Hours) Vital Signs Temp Pulse Resp BP Pulse Ox O2 Del Method 12/22/23 15:40 52 L 16 99 12/22/23 15:30 47 L 100 12/22/23 15:10 49 L 12 99 12/22/23 15:00 48 L 100 12/22/23 14:50 48 L 12 98 12/22/23 14:40 48 L 18 98 12/22/23 14:30 47 L 99 12/22/23 14:20 49 L 15 98 12/22/23 14:10 48 L 18 98 12/22/23 14:00 48 L 12 98 12/22/23 13:50 49 L 12 98 12/22/23 13:44 48 L 14 98 12/22/23 13:20 55 L 98 12/22/23 13:10 53 L 99 12/22/23 13:00 59 L 20 98 12/22/23 12:50 57 L 17 100 12/22/23 12:40 55 L 20 100 12/22/23 12:31 53 L 12/22/23 12:30 49 L 11 L 98 12/22/23 12:20 54 L 18 98 12/22/23 12:10 52 L 12 98 12/22/23 12:10 99 Room Air 12/22/23 12:02 53 L 97 12/22/23 11:58 Room Air 12/22/23 11:58 37 C 54 L 15 126/78 99 Room Air PG Care Time/CCT Total # of Minutes Spent Total Time Spent with Patient: Total time spent is greater than 50% in coordination of care (as documented) at patient's floor/unit and/or counseling patient: Coding Level of Care Code 47139 INT INP/OBS CARE 3/75MIN Diagnoses Stroke-like symptoms R29.90 Somnolence R40.0 Polysubstance abuse F19.10 Hypothyroidism (acquired) E03.9 GERD without esophagitis K21.9
[2023-12-22 16:37] LABS: Amphetamines+Metham, Urine Neg (Neg); Barbiturates, Urine Neg (Neg); Benzodiazepine, Urine Neg (Neg); Cocaine, Urine Pos (Neg); MDMA (Ecstacy), Urine Neg (Neg); Marijuana, Urine Neg (Neg); Methadone, Urine Neg (Neg); Opiate, Urine Neg (Neg); Phencyclidine, Urine Neg (Neg)
[2023-12-22] MEDS ORDERED: ALBUTEROL HFA 8 GM INHALER INH PRN (16:44)
[2023-12-22] MEDS ORDERED: NALOXONE HCL 0.4 MG/1 ML VIAL/CARP IV PRN (16:49)
[2023-12-22 18:25] LABS: Adenovirus PCR Not Detected (NotDetected); Bordetella parapertussis PCR Not Detected (NotDetected); Bordetella pertussis PCR Not Detected (NotDetected); Chlamydia pneumoniae PCR Not Detected (NotDetected); Coronavirus 229E PCR Not Detected (NotDetected); Coronavirus CoV-2 (COVID19)PCR Not Detected (NotDetected); Coronavirus HKU1 PCR Not Detected (NotDetected); Coronavirus NL63 PCR Not Detected (NotDetected); Coronavirus OC43PCR Not Detected (NotDetected); Human Metapneumovirus PCR Not Detected (NotDetected); Influenza A PCR Not Detected (NotDetected); Influenza B PCR Not Detected (NotDetected); Mycoplasma pneumoniae PCR Not Detected (NotDetected); Parainfluenza Virus 1 PCR Not Detected (NotDetected); Parainfluenza Virus 2 PCR Not Detected (NotDetected); Parainfluenza Virus 3 PCR Not Detected (NotDetected); Parainfluenza Virus 4 PCR Not Detected (NotDetected); Respiratory Syncytial VirusPCR Not Detected (NotDetected); Rhinovirus/Enterovirus PCR Not Detected (NotDetected)
[2023-12-22] MEDS ORDERED: PHARMACIST DISCHARGE MED REC CONSULT PRN (20:07)
--- NOTE | 2023-12-22 20:44 | XRay Report ---
BONY ORBITS 3 VIEWS CLINICAL HISTORY: MRI clearance. FINDINGS: 3 views of the bony orbits are obtained. No prior studies are available for comparison at t he time of dictation. There is no radiodense/metallic foreign body seen in the region of the bony orb its. Punctate radiodense/metallic foreign bodies project over the mandible on the lateral projection. The bony orbits are intact as imaged. The visualized paranasal sinuses and the mastoid air cells meaghan ear clear. The imaged calvarium appears intact. IMPRESSION: 1. There is no radiodense/metallic foreign body seen in the region of the bony orbits. 2. Punctate radiodense/metallic foreign bodies project over the mandible. ACT 112: Negative or not required by law. Electronically signed by: Nick Caceres M.D. 12/22/2023 8:42 PM
--- NOTE | 2023-12-22 20:45 | XRay Report ---
KUB CLINICAL HISTORY: MRI clearance. FINDINGS: An AP supine abdominal radiograph is compared to study dated 09/23/2020. There is a nonobst ructed abdominal bowel gas pattern. Moderate fecal retention is seen throughout the colon. Cholecyste ctomy clips are noted in the right upper quadrant. Excreted IV contrast is seen in the renal collecti ng systems and bladder. No radiodense/metallic foreign body identified. The bony structures appear in tact. IMPRESSION: 1. Moderate constipation. 2. No radiodense/metallic foreign body is identified. Electronically signed by: Nick Caceres M.D. 12/22/2023 8:44 PM
[2023-12-22] MEDS: GABAPENTIN 800 MG TAB PO SCH (21:30)
[2023-12-22] MEDS: ENOXAPARIN INJ 40 MG/0.4 ML SYR SQ SCH (21:30)
[2023-12-23] MEDS: ACETAMINOPHEN 325 MG TAB PO PRN (03:57)
[2023-12-23] MEDS: LEVOTHYROXINE SODIUM 175 MCG TABLET PO SCH (05:41)
[2023-12-23 06:19] LABS: Hematocrit (blood only) 36.3 % (37.0-47.0); Hemoglobin 12.3 g/dl (12.0-16.0); Mean Corpuscular Hemoglobin 29.5 pg (25.0-34.0); Mean Corpuscular Hgb Conc 33.9 g/dL (32.0-36.0); Mean Corpuscular Volume 87.1 fL (80.0-100.0); Mean Platelet Volume 9.1 fL (9.4-12.4); Platelet Count 292 K/uL (130-400); RDW Coefficient of Variation 15.3 % (11.5-14.5); Red Blood Count 4.17 M/uL (4.20-5.40)
[2023-12-23 06:22] LABS: Albumin Globulin Ratio 1.6 (0.9-2); Albumin Level 3.7 gm/dl (3.4-5.0); BUN Creatinine Ratio 11.9 (10-20); Bilirubin,Total 0.4 mg/dl (0.2-1.0); Calcium 8.2 mg/dl (8.6-10.3); Chol HDL Ratio 2.6 (0-5); Creatinine Clr Calc Pharmacy 58.3 ml/min; Est GFR (African American) 68.1 ml/min; Est GFR (Non-African American) 58.7 ml/min; Globulin 2.3 gm/dl (2.5-4.0); Potassium 3.6 mmol/L (3.5-5.1)
[2023-12-23 07:02] LABS: Estimated Average Glucose 131 mg/dl; Hemoglobin A1C 6.2 % (4.5-5.6)
[2023-12-23 07:13] LABS: Basophils # (auto) 0.07 K/uL (0.00-0.20); Basophils % (auto) 1.9 %; Eosinophils % (auto) 2.7 %; Lymphocytes # (auto) 2.29 K/uL (1.20-3.40); Lymphocytes % (auto) 61.9 %; Monocytes % (auto) 5.4 %; Neutrophils # (auto) 1.04 K/uL (1.40-6.50); Neutrophils % (auto) 28.1 %
[2023-12-23] MEDS: BUPRENORPHINE/NALOXONE 8/2 MG TAB SL SCH (09:04)
[2023-12-23] MEDS: PANTOprazole 40 MG TAB PO SCH (09:05)
[2023-12-23] MEDS: ATORVASTATIN 10 MG TAB PO SCH (09:05)
[2023-12-23] MEDS: PARoxetine HCL 20 MG TAB PO SCH (09:05)
[2023-12-23] MEDS: ASPIRIN 81 MG ECTAB PO SCH (09:05)
[2023-12-23] MEDS: FLUTICASONE/VILANTEROL 200/25MCG 14 PUFFS/INHALER INH SCH (09:09)
--- NOTE | 2023-12-23 12:20 | CT Scan Report ---
CT SCAN OF THE BRAIN WITHOUT IV CONTRAST CLINICAL HISTORY: Strokelike symptoms. COMPARISON STUDY: CT of the brain dated 12/22/2023. TECHNIQUE: Unenhanced axial CT scan of the brain is performed from the vertex to the skull base. A d ose lowering technique was utilized adhering to the principles of ALARA. CT DOSE: 1624.85 mGy.cm FINDINGS: Brain parenchyma: The brain parenchyma is normal in appearance. There is no hemorrhage, mass effect, or evidence of acute territorial ischemia by CT criteria. Hewitt-white matter differentiation is preser francisco. No extra-axial fluid collection is seen. Ventricles, sulci, cisterns: Normal in configuration. Intracranial vasculature: The visualized intracranial vasculature at the skull base is normal in appe arance. Calvarium: Unremarkable. Sinuses and mastoids: The visualized paranasal sinuses are clear. The mastoid air cells are well pneu matized. Orbits: The bony orbits are grossly intact. IMPRESSION: There is no hemorrhage, mass effect, or evidence of acute territorial ischemia by CT denis greer. ACT 112: Negative or not required by law. Electronically signed by: Nick Caceres M.D. 12/23/2023 12:19 PM
--- NOTE | 2023-12-23 14:25 | XCELERA ---
[id number]
[2023-12-23] MEDS: DOCUSATE SODIUM/SENNA 50/8.6MG TAB PO SCH (14:38)
--- NOTE | 2023-12-23 16:13 | Hospitalist Progress Note ---
Date of Service December 23, 2023 Assessment & Plan (1) Stroke-like symptoms: Plan: LUE Weakness, dysarthria, somnolence Patient with reported dysarthria, and focal left upper extremity deficits as outpatient the seem nearly resolved at time of inpatient assessment although somewhat limited by engagement and somnolence 12/21: CT/CT angio of the head and neck without acute findings - MRI unable to be completed due to metal on orbit xray, interval head CT without acute findings - patient denies any extra doses of medications Takes statin and ASA 81mg HgbA1c 6.2 (2) Polysubstance abuse: Plan: History of polysubstance abuse Endorses cocaine use 3 days ago urine tox is consistent/positive for this. 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 Recheck TSH in 6 weeks as outpatient. (4) GERD without esophagitis: Plan: GERD Continue Protonix Plan Chronic stable issues Hypertension: Normotensive on admission. Dyazide temporarily held pending stroke evaluation, could resume from stroke standpoint but currently low-normal BPs Anxiety: Paroxetine continued History of neuropathy, denies numbness/tingling on admission. Tizanidine held. Gabapentin level pending, hold if elevated patient denies extra doses of this DVT prophylaxis: Lovenox Disposition: continued inpatient stay, studies came back later this afternoon and patient able to be discharged, but does not have a ride and case management has left for the day. Will discuss with cm in the morning Admission and Anticipated Discharge Date Admission Date: December 22, 2023 Supervising Physician Co-Signing Physician Notes Attending Attestation - Chart reviewed, care plan d/w JOSE CARLOS Khanna. I agree w/ the arredondo components of her documentation. Patrick Piedra MD Subjective Patient seen earlier this morning in bed. Recount history that is consistent with prior docuementation. Reports cocaine use for one day after finding out that she is going to aburptly have to move again and grandchildren have been removed from her life. Denies suicidal thoughts or homicidal thoughts. Reports has not used cocaine in 7 months prior. Denies any continual weakness symtoms. speech difficulties. Has been moving around the room. Review of Systems Review of Systems: All systems reviewed & are unremarkable except as noted in Subjective Physical Exam Physical Exam: General: NAD, VS as above HEENT: PERRLA, EOMI Resp: normal respiratory effort, lungs clear to auscultation CV: RRR, no murmur, Abd: normal bowel sounds, non tender, no hepatosplenomegaly Extremities: Moves all extremities, no edema Neuro: A&O x3, no focal deficits, sensation intact, no difficulty with rapid alternating movements, no facial droop Results & Data Results & Data Vital Signs (Past 12 Hours) Vital Signs Temp Pulse Resp BP Pulse Ox O2 Del Method 12/23/23 15:11 36.3 C L 50 L 16 102/64 99 Room Air 12/23/23 11:35 36.8 C 47 L 16 107/62 97 Room Air 12/23/23 08:14 36.6 C 51 L 14 118/62 96 Room Air Laboratory Results CBC, chemistry reviewed Diagnostic Findings head CT and echo reviewed PG Care Time/CCT Total # of Minutes Spent Total Time Spent with Patient: Total time spent is greater than 50% in coordination of care (as documented) at patient's floor/unit and/or counseling patient: Coding Level of Care Code 58714 SUB INP/OBS CARE 3/50MIN Diagnoses Stroke-like symptoms R29.90 Polysubstance abuse F19.10 Hypothyroidism (acquired) E03.9 GERD without esophagitis K21.9
--- NOTE | 2023-12-24 13:52 | Hospitalist Progress Note ---
Date of Service December 24, 2023 Assessment & Plan (1) Stroke-like symptoms: Plan: LUE Weakness, dysarthria, somnolence Patient with reported dysarthria, and focal left upper extremity deficits as outpatient the seem nearly resolved at time of inpatient assessment although somewhat limited by engagement and somnolence 12/21: CT/CT angio of the head and neck without acute findings - MRI unable to be completed due to metal on orbit xray, interval head CT without acute findings - patient denies any extra doses of medications Takes statin and ASA 81mg HgbA1c 6.2 (2) Polysubstance abuse: Plan: History of polysubstance abuse Endorses cocaine use 3 days ago urine tox is consistent/positive for this. 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 Recheck TSH in 6 weeks as outpatient. (4) GERD without esophagitis: Plan: GERD Continue Protonix Plan Chronic stable issues Hypertension: Normotensive on admission. Dyazide temporarily held pending stroke evaluation, could resume from stroke standpoint but currently low-normal BPs Anxiety: Paroxetine continued History of neuropathy, denies numbness/tingling on admission. Tizanidine held. Gabapentin level pending, hold if elevated patient denies extra doses of this DVT prophylaxis: Lovenox Dispo; patient is medically stable for discharge however, finding her a ride back to [place] has been challenging. Patient refuses wheel chair transportation because of the cost. Claims she does not have anyone who could come pick her up. She provided me with the phone number to the transportation service she uses ( ) who stated they woud take her back since they brought her here, but do not have a ride available right now. i asked to schedule a ride and they told me that was not an option. I confirmed with the company that a provider or case manger has to call to schedule the ride (the patient cannot do this herself). Best option was to call back tomorrow and see if there is a ride available. Offered the patient wheelchair van transport again and she declined. Will plan to admit to medical and attempy again tomorrow to find transportation. Admission and Anticipated Discharge Date Admission Date: December 22, 2023 Supervising Physician Co-Signing Physician Notes Attending Attestation - Chart reviewed, care plan d/w JOSE CARLOS Khanna. I agree w/ the arredondo components of her documentation. Patrick Piedra MD Subjective Patient feels fine today, no new symptoms. Biggest issue is getting her home - states she told the providers she wanted to go [facility] but they brought her here instead and told her she would get a ride home. states she has no family or friends who can pick her up. Tele - SB 40-50s Review of Systems Review of Systems: All systems reviewed & are unremarkable except as noted in Subjective Physical Exam Physical Exam: breathing unlabored, clear to ascultation RRR no murmur moves all extremities Results & Data Results & Data Vital Signs (Past 12 Hours) Vital Signs Temp Pulse Resp BP Pulse Ox O2 Del Method 12/24/23 10:51 36.9 C 56 L 14 112/69 97 Room Air 12/24/23 07:47 55 L 15 112/77 99 Room Air 12/24/23 02:29 36.6 C 47 L 16 107/61 98 Room Air PG Care Time/CCT Total # of Minutes Spent Total Time Spent with Patient: Total time spent is greater than 50% in coordination of care (as documented) at patient's floor/unit and/or counseling patient: Coding Level of Care Code 70838 SUB INP/OBS CARE 1/25MIN Diagnoses Stroke-like symptoms R29.90 Polysubstance abuse F19.10 Hypothyroidism (acquired) E03.9 GERD without esophagitis K21.9
--- NOTE | 2023-12-25 10:36 | Hospitalist Progress Note ---
Date of Service December 25, 2023 Assessment & Plan (1) Stroke-like symptoms: Plan: LUE Weakness, dysarthria, somnolence Patient with reported dysarthria, and focal left upper extremity deficits as outpatient the seem nearly resolved at time of inpatient assessment although somewhat limited by engagement and somnolence 12/21: CT/CT angio of the head and neck without acute findings - MRI unable to be completed due to metal on orbit xray, interval head CT without acute findings - patient denies any extra doses of medications Takes statin and ASA 81mg HgbA1c 6.2 (2) Polysubstance abuse: Plan: History of polysubstance abuse Endorses cocaine use 3 days ago urine tox is consistent/positive for this. 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 Recheck TSH in 6 weeks as outpatient. (4) GERD without esophagitis: Plan: GERD Continue Protonix Plan Chronic stable issues Hypertension: Normotensive on admission. Dyazide temporarily held pending stroke evaluation, could resume from stroke standpoint but currently low-normal BPs Anxiety: Paroxetine continued History of neuropathy, denies numbness/tingling on admission. Tizanidine held. Gabapentin level pending, hold if elevated patient denies extra doses of this DVT prophylaxis: Lovenox Dispo; patient is medically stable for discharge however, finding her a ride back to [place] has been challenging. Patient refuses wheel chair transportation because of the cost. Claims she does not have anyone who could come pick her up. She provided me with the phone number to the transportation service she uses ( ) who stated they woud take her back since they brought her here, I again called this morning 12/24 and they stated they do not provide transportation [place] on Sundays. I confirmed with the company that a provider or case manger has to call to schedule the ride (the patient cannot do this herself). Best option was to call back tomorrow and see if there is a ride available. Offered the patient wheelchair van transport again and she declined. Continued inpatient stay and attempt again tomorrow to find transportation. Admission and Anticipated Discharge Date Admission Date: December 24, 2023 Supervising Physician Co-Signing Physician Notes Attending Attestation - Chart reviewed, care plan d/w JOSE CARLOS Khanna. I agree w/ the arredondo components of her documentation. Patrick Piedra MD Subjective patient resting in bed. I told her how I called the [employer] number that she gave me and they told her that they are unable to find rides [place] on the weekend. She states she called and got the same result. Still states that there is no one else that she could call. I discussed with case management and we are unable to provide any other sort of ride besides a wheelchair van which patient again refuses to pay for patient states that when she spoke to the [employer] this morning they should be able provide arrived on Tuesday without issue. no acute physical symptoms Review of Systems Review of Systems: All systems reviewed & are unremarkable except as noted in Subjective Physical Exam Physical Exam: No acute distress Breathing unlabored, cardiac exam is normal Results & Data Results & Data Vital Signs (Past 12 Hours) Vital Signs Temp Pulse Resp BP Pulse Ox O2 Del Method 12/25/23 07:15 36.5 C 61 18 101/61 96 Room Air PG Care Time/CCT Total # of Minutes Spent Total Time Spent with Patient: Total time spent is greater than 50% in coordination of care (as documented) at patient's floor/unit and/or counseling patient: Coding Level of Care Code 87215 SUB INP/OBS CARE 25MIN Diagnoses Stroke-like symptoms R29.90 Polysubstance abuse F19.10 Hypothyroidism (acquired) E03.9 GERD without esophagitis K21.9
[2023-12-26 06:28] LABS: Cocaine, Urine >15000 ng/mL (<100)
[2023-12-26] MEDS ORDERED: STROKE PATIENT DISCHARGE STA (10:54)
--- NOTE | 2023-12-26 10:58 | Discharge Summary ---
Discharge Summary Date of Service December 26, 2023 Notes For Next Care Provider Patient admitted after concerns for stroke like symptoms with one sided weakness and slurred speach. Symptoms resolved by time of admission. CT and interval CT scan negative, unable to have brain MRI. Concern for TIA vs cocaine effects. Continue statin and ASA. -Hgb A1c 6.2 - synthroid increased, recommend recheck in 4-6 weeks Medication Changes From Visit Synthroid increased Admission HPI Per Admitting Provider Patient follows with Dr. Mayfield as outpatient and is well-known to that office. When seen today patient was reportedly normal the previous night but on PCP evaluation had diminished strength and fine motor activity of the left upper extremity with new balance deficits with slurred speech and left pronator drift suspicious for acute stroke pathology. She was referred to the ER for stroke evaluation. Deficits greatly improved on ER evaluation, 4/5 left upper extremity elbow extension and outreach representative but otherwise symmetrical strength. CT of the head and CT angios were normal. History of similar symptoms with suspected vasospasm mediated etiology from cocaine use, patient denies any cocaine use in the preceding 72 hours. Troponin is normal. Patient seen at the bedside. Somnolent and falls asleep easily. History is somewhat limited by somnolence. She reorients easily but frequently falls asleep and needs reorientation and is unclear what day it is. She is oriented to month and year, but does repeatedly ask where she is and what it is. Laurel is seen in the ER. Extremely somnolent. No chest pain or chest pressure. No dyspnea. +dry nonproductive cough for a few days. Denies fever, chills, sweats but has been cold lately. Denies diarrhrea/constipation Takes suboxone 2x 8mg total daily split as morning and night.Takes suboxone for pain. Denies narcotic use in the last 7 years. Denies any other coingestions other than cocaine use 3 days ago Reports that she did not take her Suboxone today last took this last night, and denies taking any extra doses. Urine tox is negative for opiates, positive for cocaine Denies headache, photosensitivity, photosensitivity At time bedside assessment she denies weakness. Denies paresthesias at the bedside Medical History: Reviewed Medications: Reviewed Surgical History: Reviewed Family history: Reviewed Allergies: Reviewed Social History: Cigarettes 0.5ppd, >10years. Endorses coaine use 3 days ago. Uses cocaine less than monthly. Code Status: Full code Principal Dx & Hospital Course #1 = Principal Diagnosis (1) Stroke-like symptoms: LUE Weakness, dysarthria, somnolence Patient with reported dysarthria, and focal left upper extremity deficits as outpatient the seem nearly resolved at time of inpatient assessment although somewhat limited by engagement and somnolence 12/21: CT/CT angio of the head and neck without acute findings - MRI unable to be completed due to metal on orbit xray, interval head CT without acute findings - patient denies any extra doses of medications - Gabapentin level 8.1 Given duration and symptoms and other medications/substance use, possible TIA but overall less likely. Will continue on 10mg atorvastatin given risk benefit that symptoms may not have been due to TIA. Continue statin and ASA 81mg HgbA1c 6.2 (2) Polysubstance abuse: History of polysubstance abuse Endorses cocaine use 3 days ago urine tox is consistent/positive for this. ?Withdrawal She does take buprenorphine and opiates screen is negative, does not think she took any additional doses of bupronorphrine [employer] Alcohol is negative Anion gap is normal Echo for completelness with cocaine use --> no wall motion abnormalities, no intraatrial shunt (3) Hypothyroidism (acquired): Hypothyroidism TSH is elevated with low free T4, Synthroid adjusted from 150 mcg to 175 mcg. Recheck TSH in 6 weeks as outpatient. (4) GERD without esophagitis: GERD Continue Protonix Plan Chronic stable issues Hypertension: Normotensive on admission. HCTZ resumed on discharge. Anxiety: Paroxetine continued History of neuropathy, denies numbness/tingling on admission. Tizanidine held. DVT prophylaxis: Lovenox Dispo: discharge to home today Discharge Exam No acute distress Breathing unlabored, cardiac exam is normal Updated Medication List Medication Instructions Recorded Confirmed Type multivitamin 1 tab PO QAM 08/18/20 12/22/23 History Cane #1 ea 06/22/22 12/22/23 Rx naloxone 4 mg/actuation nasal 4 mg intranasal Q2M PRN 02/01/23 12/22/23 Rx spray (Narcan) Respiratory Distress #2 ea albuterol sulfate 90 mcg/actuation 2 puff inhalation Q6H PRN 04/27/23 12/22/23 Rx aerosol inhaler (Ventolin HFA) Shortness Of Breath #8.5 grams atorvastatin 10 mg tablet 10 mg PO DAILY #30 tabs 04/27/23 12/22/23 Rx gabapentin 800 mg tablet 800 mg PO QID #360 tabs 04/27/23 12/22/23 Rx pantoprazole 40 mg tablet,delayed 40 mg PO QAM gerd #90 tabs 04/27/23 12/22/23 Rx release paroxetine HCl 20 mg tablet 20 mg PO QAM #90 tabs 04/27/23 12/22/23 Rx hydrocortisone 2.5 % topical cream 1 applic [place] BID hemorrhoids #30 08/15/23 12/22/23 Rx with perineal applicator grams (Anusol-HC) aspirin 81 mg tablet,delayed 81 mg PO QAM #90 tabs 08/31/23 12/22/23 Rx release (Adult Aspirin Regimen) fluticasone furoate 200 1 inh inhalation QAM #180 ea 08/31/23 12/22/23 Rx mcg-vilanterol 25 mcg/dose inhalation powder (Breo Ellipta) sennosides 8.6 mg-docusate sodium 1 - 4 tab-cap (1 - 4 x 8.6-50 mg) 08/31/23 12/22/23 Rx 50 mg tablet (Colace 2-In-1) PO DAILY constipation #360 tabs hydrochlorothiazide 25 mg tablet 25 mg PO DAILY #30 tabs 09/05/23 12/22/23 Rx docusate sodium 100 mg capsule See Rx Instructions .Route 09/09/23 12/22/23 Rx .COMPLEX #60 caps tizanidine 4 mg capsule 4 mg PO QID PRN ud #120 caps 11/23/23 12/22/23 Rx buprenorphine 8 mg-naloxone 2 mg 2 film buccal DAILY 12/22/23 12/22/23 History sublingual film (Suboxone) levothyroxine 175 mcg tablet 175 mcg PO DAILYBB 30 days #30 tabs 12/26/23 Rx (Synthroid) Hospital Stay Data Consultations 12/22/23 16:19 ED Decision to Admit Stat Diagnostic Imagining Performed Chest X-Ray 12/22/23 12:01 SINGLE VIEW CHEST CLINICAL HISTORY: Strokelike symptoms. FINDINGS: 2 AP, portable, upright chest radiographs are obtained. No prior studies are available for comparison at the time of dictation. Partially degr aded The cardiomediastinal silhouette is unremarkable. There is mild elevation of the right hemidiaphragm with right basilar atelectasis. The lungs and pleural spaces are otherwise clear. No pneumothorax is seen. The bony thorax is grossly intact. IMPRESSION: No active disease in the chest. ACT 112: Negative or not required by law. Electronically signed by: Nick Caceres M.D. 12/22/2023 12:[address] 12/22/23 12:[address] OF THE BRAIN; CT ANGIOGRAM OF THE BRAIN; CT ANGIOGRAM OF THE NECK CLINICAL HISTORY: Difficulty walking. Strokelike symptoms. COMPARISON STUDY: No priors. TECHNIQUE: Unenhanced axial CT scan of the brain is performed. Subsequently, following the IV administration of 113 of Optiray 320, CT angiogram of the head and neck was performed from the aortic arch to the vertex. Images are reviewed in the axial, sagittal, and coronal planes. 3-D MIPS images are created and assessed. IV contrast was administered without complication. All measurements were calculated based on NASCET criteria. A dose lowering technique was utilized adhering to the principles of ALARA. CT DOSE: 1013.98 mGy.cm FINDINGS: Brain parenchyma: The brain parenchyma is normal in appearance. There is no hemorrhage, mass effect, or evidence of acute territorial ischemia by CT criteria. There is no evidence of enhancing mass lesion on the angiogram phase images. The ventricles, sulci, and cisterns are normal in configuration. Hewitt- white matter differentiation is preserved. No extra-axial fluid collection is seen. Thoracic aorta: There is moderate atherosclerotic calcification of the thoracic aorta. Visualized portions of the thoracic aorta are normal in caliber. The aortic arch demonstrates standard 3-vessel anatomy. Right carotid arterial system: The right common carotid artery is widely patent, as on the right internal and external carotid arteries. Left carotid arterial system: The left common carotid artery is widely patent, as are the left internal and external carotid arteries. Vertebral arteries: The vertebral arteries are widely patent bilaterally noting right-sided dominance. Subclavian arteries: Widely patent bilaterally. Intracranial vasculature: The internal carotid arteries are patent at the skull base, as are the anterior and middle cerebral arteries bilaterally. The vertebrobasilar system and posterior cerebral arteries are widely patent. The right vertebral artery is dominant. There is no aneurysm, high-grade stenosis, or focal vessel cut off seen throughout the intracranial circulation. Jugular veins: Patent bilaterally. Dural sinuses: Patent. Lung apices: Partially visualized upper lobe lung parenchyma appears clear. Soft tissues: The visualized pharyngeal soft tissues are normal in appearance noting angiographic phase technique. The oropharyngeal airway appears widely patent. The salivary and thyroid glands are normal in appearance. No cervical lymphadenopathy is seen. Skeletal structures: The skeletal structures are osteopenic. The calvarium appears intact. The cervical spine is within normal limits. There are minimal infiltrates. The compression injuries of T2 and T3. Orbits: The bony orbits are intact. Orbital contents are normal as visualized. Sinuses and mastoids: There is trace mucosal thickening right maxillary antrum. The remaining paranasal sinuses are clear. The mastoid air cells are well pneumatized. IMPRESSION: 1. There is no hemorrhage, mass effect, or evidence of acute territorial ischemia by CT criteria. 2. Unremarkable CT angiogram of the brain. 3. Unremarkable CT angiogram of the neck. ACT 112: Negative or not required by law. Electronically signed by: Nick Caceres M.D. 12/22/2023 1:58 PM Head CTA 12/22/23 12:[address] OF THE BRAIN; CT ANGIOGRAM OF THE BRAIN; CT ANGIOGRAM OF THE NECK CLINICAL HISTORY: Difficulty walking. Strokelike symptoms. COMPARISON STUDY: No priors. TECHNIQUE: Unenhanced axial CT scan of the brain is performed. Subsequently, following the IV administration of 113 of Optiray 320, CT angiogram of the head and neck was performed from the aortic arch to the vertex. Images are reviewed in the axial, sagittal, and coronal planes. 3-D MIPS images are created and assessed. IV contrast was administered without complication. All measurements were calculated based on NASCET criteria. A dose lowering technique was utilized adhering to the principles of ALARA. CT DOSE: 1013.98 mGy.cm FINDINGS: Brain parenchyma: The brain parenchyma is normal in appearance. There is no hemorrhage, mass effect, or evidence of acute territorial ischemia by CT criteria. There is no evidence of enhancing mass lesion on the angiogram phase images. The ventricles, sulci, and cisterns are normal in configuration. Hewitt- white matter differentiation is preserved. No extra-axial fluid collection is seen. Thoracic aorta: There is moderate atherosclerotic calcification of the thoracic aorta. Visualized portions of the thoracic aorta are normal in caliber. The aortic arch demonstrates standard 3-vessel anatomy. Right carotid arterial system: The right common carotid artery is widely patent, as on the right internal and external carotid arteries. Left carotid arterial system: The left common carotid artery is widely patent, as are the left internal and external carotid arteries. Vertebral arteries: The vertebral arteries are widely patent bilaterally noting right-sided dominance. Subclavian arteries: Widely patent bilaterally. Intracranial vasculature: The internal carotid arteries are patent at the skull base, as are the anterior and middle cerebral arteries bilaterally. The vertebrobasilar system and posterior cerebral arteries are widely patent. The right vertebral artery is dominant. There is no aneurysm, high-grade stenosis, or focal vessel cut off seen throughout the intracranial circulation. Jugular veins: Patent bilaterally. Dural sinuses: Patent. Lung apices: Partially visualized upper lobe lung parenchyma appears clear. Soft tissues: The visualized pharyngeal soft tissues are normal in appearance noting angiographic phase technique. The oropharyngeal airway appears widely patent. The salivary and thyroid glands are normal in appearance. No cervical lymphadenopathy is seen. Skeletal structures: The skeletal structures are osteopenic. The calvarium appears intact. The cervical spine is within normal limits. There are minimal infiltrates. The compression injuries of T2 and T3. Orbits: The bony orbits are intact. Orbital contents are normal as visualized. Sinuses and mastoids: There is trace mucosal thickening right maxillary antrum. The remaining paranasal sinuses are clear. The mastoid air cells are well pneumatized. IMPRESSION: 1. There is no hemorrhage, mass effect, or evidence of acute territorial ischemia by CT criteria. 2. Unremarkable CT angiogram of the brain. 3. Unremarkable CT angiogram of the neck. ACT 112: Negative or not required by law. Electronically signed by: Nick Caceres M.D. 12/22/2023 1:58 PM Neck CTA 12/22/23 12:[address] OF THE BRAIN; CT ANGIOGRAM OF THE BRAIN; CT ANGIOGRAM OF THE NECK CLINICAL HISTORY: Difficulty walking. Strokelike symptoms. COMPARISON STUDY: No priors. TECHNIQUE: Unenhanced axial CT scan of the brain is performed. Subsequently, following the IV administration of 113 of Optiray 320, CT angiogram of the head and neck was performed from the aortic arch to the vertex. Images are reviewed in the axial, sagittal, and coronal planes. 3-D MIPS images are created and assessed. IV contrast was administered without complication. All measurements were calculated based on NASCET criteria. A dose lowering technique was utilized adhering to the principles of ALARA. CT DOSE: 1013.98 mGy.cm FINDINGS: Brain parenchyma: The brain parenchyma is normal in appearance. There is no hemorrhage, mass effect, or evidence of acute territorial ischemia by CT criteria. There is no evidence of enhancing mass lesion on the angiogram phase images. The ventricles, sulci, and cisterns are normal in configuration. Hewitt- white matter differentiation is preserved. No extra-axial fluid collection is seen. Thoracic aorta: There is moderate atherosclerotic calcification of the thoracic aorta. Visualized portions of the thoracic aorta are normal in caliber. The aortic arch demonstrates standard 3-vessel anatomy. Right carotid arterial system: The right common carotid artery is widely patent, as on the right internal and external carotid arteries. Left carotid arterial system: The left common carotid artery is widely patent, as are the left internal and external carotid arteries. Vertebral arteries: The vertebral arteries are widely patent bilaterally noting right-sided dominance. Subclavian arteries: Widely patent bilaterally. Intracranial vasculature: The internal carotid arteries are patent at the skull base, as are the anterior and middle cerebral arteries bilaterally. The vertebrobasilar system and posterior cerebral arteries are widely patent. The right vertebral artery is dominant. There is no aneurysm, high-grade stenosis, or focal vessel cut off seen throughout the intracranial circulation. Jugular veins: Patent bilaterally. Dural sinuses: Patent. Lung apices: Partially visualized upper lobe lung parenchyma appears clear. Soft tissues: The visualized pharyngeal soft tissues are normal in appearance noting angiographic phase technique. The oropharyngeal airway appears widely patent. The salivary and thyroid glands are normal in appearance. No cervical lymphadenopathy is seen. Skeletal structures: The skeletal structures are osteopenic. The calvarium appears intact. The cervical spine is within normal limits. There are minimal infiltrates. The compression injuries of T2 and T3. Orbits: The bony orbits are intact. Orbital contents are normal as visualized. Sinuses and mastoids: There is trace mucosal thickening right maxillary antrum. The remaining paranasal sinuses are clear. The mastoid air cells are well pneumatized. IMPRESSION: 1. There is no hemorrhage, mass effect, or evidence of acute territorial ischemia by CT criteria. 2. Unremarkable CT angiogram of the brain. 3. Unremarkable CT angiogram of the neck. ACT 112: Negative or not required by law. Electronically signed by: Nick Caceres M.D. 12/22/2023 1:58 PM KUB X-Ray 12/22/23 19:46 KUB CLINICAL HISTORY: MRI clearance. FINDINGS: An AP supine abdominal radiograph is compared to study dated 09/23/2020. There is a nonobstructed abdominal bowel gas pattern. Moderate fecal retention is seen throughout the colon. Cholecystectomy clips are noted in the right upper quadrant. Excreted IV contrast is seen in the renal collecting systems and bladder. No radiodense/metallic foreign body identified. The bony structures appear intact. IMPRESSION: 1. Moderate constipation. 2. No radiodense/metallic foreign body is identified. Electronically signed by: Nick Caceres M.D. 12/22/2023 8:44 PM Orbit X-Ray 12/22/23 19:46 BONY ORBITS 3 VIEWS CLINICAL HISTORY: MRI clearance. FINDINGS: 3 views of the bony orbits are obtained. No prior studies are available for comparison at the time of dictation. There is no radiodense/metallic foreign body seen in the region of the bony orbits. Punctate radiodense/metallic foreign bodies project over the mandible on the lateral projection. The bony orbits are intact as imaged. The visualized paranasal sinuses and the mastoid air cells appear clear. The imaged calvarium appears intact. IMPRESSION: 1. There is no radiodense/metallic foreign body seen in the region of the bony orbits. 2. Punctate radiodense/metallic foreign bodies project over the mandible. ACT 112: Negative or not required by law. Electronically signed by: Nick Caceres M.D. 12/22/2023 8:[address] 12/23/23 11:05 CT SCAN OF THE BRAIN WITHOUT IV CONTRAST CLINICAL HISTORY: Strokelike symptoms. COMPARISON STUDY: CT of the brain dated 12/22/2023. TECHNIQUE: Unenhanced axial CT scan of the brain is performed from the vertex to the skull base. A dose lowering technique was utilized adhering to the principles of ALARA. CT DOSE: 1624.85 mGy.cm FINDINGS: Brain parenchyma: The brain parenchyma is normal in appearance. There is no hemorrhage, mass effect, or evidence of acute territorial ischemia by CT criteria. Hewitt-white matter differentiation is preserved. No extra-axial fluid collection is seen. Ventricles, sulci, cisterns: Normal in configuration. Intracranial vasculature: The visualized intracranial vasculature at the skull base is normal in appearance. Calvarium: Unremarkable. Sinuses and mastoids: The visualized paranasal sinuses are clear. The mastoid air cells are well pneumatized. Orbits: The bony orbits are grossly intact. IMPRESSION: There is no hemorrhage, mass effect, or evidence of acute territorial ischemia by CT criteria. ACT 112: Negative or not required by law. Electronically signed by: Nick Caceres M.D. 12/23/2023 12:19 PM Pending Results Patient Have Any Pending Studies at Discharge: No Discharge Instructions Given to Patient (Per Discharging Provider) Ms. Perla, You were hospitalized after having one sided weakness symptoms concerns for a stroke. You had an extensive workup that did not show a stroke. Concern for TIA, which some people call a mini stroke, or a side effect from your cocaine use. You should continue taking the atorvastatin and Aspirin 81 mg to prevent stroke. The only change we made to your home medications was we increased the dose of your Synthroid. Your PCP should recheck your thyroid levels in 4-6 weeks. I sent in the new dose to your pharmacy. Your [id number] (which is the average of your blood sugars over the last 90 days) showed that you were prediabetic. you should focus on healthy diet - avoid sugars and complex carbohydrates and increase your exercise. Follow up with your PCP regarding this. Recommend stop smoking and stop using cocaine to prevent further events. Follow-up appointments: Make an appointment with your primary care physician within one week of discharge. An appointment has already been made for you. A copy of this summary will be sent to them. Every time you see your primary care physician, or any other doctor, bring your medication list, and a list of questions. CONTACT YOUR PRIMARY CARE PROVIDER if you experience any of the following: Shortness of breath or difficulty breathing Fevers or chills Feeling tired with normal activity or experiencing dizziness or fainting Difficulty following your treatment plan, or difficulty taking medications CALL 911 OR GO TO THE EMERGENCY DEPARTMENT if you experience any of the follow ing: Severe abdominal pain or nausea/vomiting Severe chest pain, or chest pain that radiates (moves) to your jaw or arm Sudden, severe shortness of breath or difficulty breathing Thank you for allowing us to participate in your care. Total Time Total Time Spent Total Time Spent (In Minutes): Time spend day of discharge 35 minutes including direct patient care, medication reconciliation, documentation, review of labs and images, and coordination of care. Supervising Physician Co-Signing Physician Notes Attending Attestation and Discharge Note: Chart reviewed, care plan d/w JOSE CARLOS Khanna. I agree w/ the arredondo components of her discharge documentation. 53yo female with polysubstance abuse & hypothyroidism presented with LUE Weakness, dysarthria, and somnolence. She had been at her PCP's office in [place] when she was noted to be altered and had the LUE weakness. Referred to the [facility] ER and subsequently admitted. Stroke w/u including CT head and CTA head/neck were all negative/normal. Echo did not show any LV dysfunction or wall motion abnormalities. Tox screen was + for cocaine. Respiratory BioFire was negative. Unfortunately she could not undergo MRI brain due to metal fragments seen on orbital x-ray. It was suspected that either she had had a TIA OR her symptoms were due to vasospasm from cocaine. She was asked to take aspirin 81mg daily for secondary prevention. On day of discharge, prior to my bedside assessment, the patient abruptly left the hospital as her family had come to pick her up. For several days prior to this we had been trying to arrange transportation for her back to her home in [place]. While attempting to coordinate a ride we were suddenly made aware that her family had picked her up. Thus, I was unable to perform a discharge examination or bedside visit on 12/26/23. Patrick Piedra MD Coding Level of Care Code 64610 INP/OBS DISCH >30 MIN Diagnoses Stroke-like symptoms R29.90 Polysubstance abuse F19.10 Hypothyroidism (acquired) E03.9 GERD without esophagitis K21.9
--- NOTE | 2023-12-26 11:58 | Pharmacy Report ---
- Date of Service December 26, 2023 - Pharmacy CVA/TIA Medication Review Medications to Prevent Stroke handout has been added to the patients discharge packet. Antiplatelet(s) * Aspirin Cholesterol * Discussed w Liat Khanna - High intensity statin deferred because etiology of symptoms may not have been TIA and risk/benefit favors continuing current dose of atorvastatin 10 mg. DVT Prophylaxis * Enoxaparin SQ Therapeutic Anticoagulation * No history of Afib/Aflutter noted Type 2 Diabetes * Patient does not have T2DM - HbA1c consistent with *pre*diabetes.
== END 2023-12-26 11:38 | disposition home or self-care (01) | DRG 897 ==
LOC: 2E 11:39 → ED 11:39 → 2E 17:45 → SUATTDRO 12-24 13:47 → 3N 12-24 16:32